=== PATIENT | male | born 1945 | race Caucasian/White ===

== ENCOUNTER 2019-05-18 11:00 | Outpatient (RCR) | payer MEDICARE, BC ==
[~2019-05-18 11:00] MED LIST: ANTIBIOTIC; ASPIR-LOW81 MG PO; CEPHALEXIN500 M1 PO; DOXYCYCLINE 10100 MG PO; FERROUS SU325 MG/TAB PO; FISH OIL500 MG PO; FOLIC ACID 40400 MCG PO; LORTAB PO; MULTIVITAMIN1 SGL PO; NO HOME MEDICATIONS; NORCO 325 MG-7.1 TAB PO; TYLENOL 500MG500 MG PO; ULTRAM 50MG TAB50 MG PO; VITAMIN C500 MG PO
== END 2019-06-02 | disposition home or self-care (01) ==
LOC: WSPT
DX: M62.89 Other specified disorders of muscle (principal); M25.561 Pain in right knee; Z96.651 Presence of right artificial knee joint

== ENCOUNTER 2019-07-26 15:17 | Inpatient (IN) | payer MEDICARE, BC ==
[~2019-07-26] VITALS: Ht 165.1 cm; Wt 75.6 kg
[2019-07-26] MEDS ORDERED: ARICEPT10 MG PO (15:27)
[2019-07-26] MEDS ORDERED: NAMENDA5 MG PO (15:28)
[2019-07-26 15:53] LABS: BASO % 0.6 % (0.0-2.0); EOS # 0.2 (0.0-0.7); EOS % 3.2 % (0-4.0); GRAN # 3.5 (1.4-6.5); GRAN % 55.4 % (42.2-75.2); HEMOGLOBIN 17.5 g/dl (13.5-18.0); LYMPH # 1.7 (1.2-3.4); MEAN CELL VOLUME 97 fl (80.0-100.0); MEAN CORPUSCULAR HEMOGLOBIN 33 pg (27.0-31.0); MEAN CORPUSCULAR HGB CONC 34 g/dl (33.0-37.0); MEAN PLATELET VOLUME 8.7 fl (7.4-10.4); MONO # 0.8 (0.1-0.6); MONO % 13.3 % (1.7-9.3); PLATELET COUNT 248 K/mm3 (130-400); RED BLOOD COUNT 5.39 M/mm3 (4.20-5.60); REDCELL DISTRIBUTION WIDTH-CV 12.3 % (11.5-14.5)
[2019-07-26 15:57] LABS: COLLECTION METHOD CLEAN CATCH
[2019-07-26 16:04] LABS: HEMATOCRIT 52.3 % (42.0-52.0)
[2019-07-26 16:17] LABS: MUCOUS Present /lpf; PH 5 (5-8); SQUAMOUS EPITHELIAL None Seen /hpf; URINE APPEARANCE Clear; URINE BACTERIA None Seen /hpf; URINE BILIRUBIN Negative (NEGATIVE); URINE BLOOD Negative (NEGATIVE); URINE COLOR Yellow; URINE GLUCOSE Negative (NEGATIVE); URINE KETONE Negative (NEGATIVE); URINE LEUKOCYTE ESTERASE Negative (NEGATIVE); URINE NITRATE Negative (NEGATIVE); URINE PROTEIN(semi-quant) Negative (NEGATIVE); URINE RBC 0-2 /hpf; URINE UROBILINOGEN Negative (NEGATIVE)
[2019-07-26 16:18] LABS: ALANINE AMINOTRANSFERASE 31 U/L (21-72); ALBUMIN 4.2 gm/dL (3.5-5.0); ALKALINE PHOSPHATASE 115 U/L (50-136); ANION GAP 11 mmol/L (7-16); AST,SGOT 61 U/L (15-37); BILIRUBIN,TOTAL 1.4 mg/dL (0.0-1.0); BLOOD UREA NITROGEN 17 mg/dL (9-20); CALCIUM 9.2 mg/dL (8.4-10.2); CARBON DIOXIDE 25 mmol/L (22-30); CHLORIDE 106 mmol/L (98-107); CREATININE, serum 0.99 (0.66-1.25); GLUCOSE 94 mg/dL (74-106); POTASSIUM 4.1 mmol/L (3.4-5.0); SODIUM 142 mmol/L (137-145); TOTAL PROTEIN 8.1 gm/dL (6.4-8.2)
[2019-07-26 16:32] LABS: TROPONIN-I < 0.012 ng/mL (0.000-0.035)
[2019-07-26 16:44] LABS: CREATINE KINASE 186 U/L (55-170)
[2019-07-26 16:47] LABS: C-REACTIVE PROTEIN < 0.5 mg/dL (0.0-0.9)
--- NOTE | 2019-07-26 18:00 | NUR ---
Pt arrives to medical unit rm 311 from ED, awake and alert, oriented to self only. Doll Wigs Hackler equal bilat and facial movements symmetrical bilat. IV to left AC without s/s of complications. Pt denies pain at this time. No difficulty with swallowing water noted. Pt's and daughter at bedside answering questions. No further needs reported. Call light in reach.
[2019-07-26] MEDS ORDERED: NAMENDA 10MG TA10 MG PO (18:01)
[2019-07-26 18:07] VITALS: BP 117/76; PULSE 55; TEMP 97.5
--- NOTE | 2019-07-26 20:12 | NUR ---
ASSSESSMENT COMPLETE. RESTING IN BED. POOR HISTORIAN. REPORTS THAT IS HIS BASELINE. DENIES PAIN/ NEEDS AT THIS TIME.
[2019-07-26 21:50] VITALS: BP 114/68; PULSE 53; TEMP 98
[2019-07-27 00:43] VITALS: BP 118/73; PULSE 56; TEMP 97.4
[2019-07-27 03:51] VITALS: BP 130/80; PULSE 56; TEMP 97.9
[2019-07-27 06:30] LABS: BASO % 0.7 % (0.0-2.0); EOS # 0.2 (0.0-0.7); EOS % 4.1 % (0-4.0); GRAN # 3.1 (1.4-6.5); GRAN % 54.7 % (42.2-75.2); HEMATOCRIT 49.6 % (42.0-52.0); HEMOGLOBIN 16.2 g/dl (13.5-18.0); LYMPH # 1.4 (1.2-3.4); MEAN CELL VOLUME 98 fl (80.0-100.0); MEAN CORPUSCULAR HEMOGLOBIN 32 pg (27.0-31.0); MEAN CORPUSCULAR HGB CONC 33 g/dl (33.0-37.0); MEAN PLATELET VOLUME 8.9 fl (7.4-10.4); MONO # 0.9 (0.1-0.6); PLATELET COUNT 237 K/mm3 (130-400); RED BLOOD COUNT 5.07 M/mm3 (4.20-5.60); REDCELL DISTRIBUTION WIDTH-CV 12.3 % (11.5-14.5)
[2019-07-27 06:47] LABS: CALCIUM 8.8 mg/dL (8.4-10.2); CREATININE, serum 0.95 (0.66-1.25)
[2019-07-27 07:16] LABS: TSH w REFLEX 1.76 uIU/mL (0.465-4.680)
--- NOTE | 2019-07-27 10:00 | NUR ---
Patient has successfully been having bowel movements, is releived to be having them since it has been so long but is apologetic for incontinence care. Was reassured that it was no problem and we were pleased he was getting relief.
[2019-07-27] MEDS ORDERED: NAMENDA 10MG TA10 MG PO (10:06)
--- NOTE | 2019-07-27 10:31 | NUR ---
Meter Reader met with patient to discuss discharge planning. Patient lives in [place] with his Breanna (ph#[phone]) and sees Dr. Castellano for primary care. Patient obtains medications from [facility] with no difficulties. Patient uses a cane and Breanna reports patient gets around the house okay. Patient does not require assistance with ADLS however receives assistance as needed from his . Breanna reports they go to a local indoor pool about three times a week for aquatic exercise. Breanna reports DPOA-HC is completed although SW did not locate copy in EMR. Patient plans to return home upon discharge. Breanna reports patient worked with home health a few years ago and is open to their services if recommended. Patient to work with PT/OT/ST. DEJA to continue to follow to ensure safe discharge.
--- NOTE | 2019-07-27 12:01 | NUR ---
Initial visit; Traffic Administrator spoke with patient's , letting her know of the availability of spiritual care at [facility].
[2019-07-27 16:07] VITALS: BP 116/77; PULSE 64; TEMP 97.3
--- NOTE | 2019-07-27 16:13 | NUR ---
Syrup Shed Supervisor collaborated with JESSENIA Hamm who advised patient would like outpatient Physical Therapy. SW met with patient and patient's Breanna who reports patient would like to continue PT at [facility] on [address]. DEJA contacted [facility] and made appointment for PT evaluation with [facility] on 08/04/2019 at 0800. DEJA provided appointment to Breanna and Audrey stevenson.
--- NOTE | 2019-07-27 18:50 | NUR ---
Patient is up in bed eating, call light nad personal items are within reach.
[2019-07-27 19:36] VITALS: BP 151/99; PULSE 99; TEMP 97.8
--- NOTE | 2019-07-27 19:38 | NUR ---
ASSESSMENT COMPLETE. MULTIPLE ATTEMPTS TO RISE UASSISSTED "TO FIND THE FRONT DOOR AND GET OUT OF HERE." REORIENTED TO ROOM. REMINDED THAT HE IS IN THE HOSPITAL. DENIES PAIN/ DISCOMFORT.
[2019-07-27 23:10] VITALS: BP 135/82; PULSE 69; TEMP 97.6
[2019-07-28 04:40] VITALS: BP 141/80; PULSE 60; TEMP 97.9
[2019-07-28 05:58] LABS: BASO # 0.1 (0.0-0.2); BASO % 0.8 % (0.0-2.0); EOS # 0.3 (0.0-0.7); EOS % 4.2 % (0-4.0); GRAN # 3.3 (1.4-6.5); GRAN % 51.3 % (42.2-75.2); HEMATOCRIT 50.4 % (42.0-52.0); HEMOGLOBIN 16.8 g/dl (13.5-18.0); LYMPH # 1.8 (1.2-3.4); LYMPH % 27.5 % (20.0-51.0); MEAN CELL VOLUME 98 fl (80.0-100.0); MEAN CORPUSCULAR HEMOGLOBIN 33 pg (27.0-31.0); MEAN CORPUSCULAR HGB CONC 33 g/dl (33.0-37.0); MONO % 15.9 % (1.7-9.3); PLATELET COUNT 234 K/mm3 (130-400); RED BLOOD COUNT 5.12 M/mm3 (4.20-5.60); REDCELL DISTRIBUTION WIDTH-CV 12.3 % (11.5-14.5)
--- NOTE | 2019-07-28 07:15 | NUR ---
Received report, patient is currently laying in bed, eyes are open, smiles at staff during report. Call light and personal items are within reach.
[2019-07-28 07:20] VITALS: BP 138/61; PULSE 67; TEMP 97.6
--- NOTE | 2019-07-28 07:25 | NUR ---
Patient resting in bed with eyes closed. Patient is easily aroused, oriented to self. Moves extremities well but needs verbal queing. Left AC INT, no redness, swelling, edema noted and Tele on. at beside and bed alarm is engaged.
[2019-07-28 07:58] LABS: CALCIUM 9.4 mg/dL (8.4-10.2); CHOLESTEROL RISK RATIO 6.5; CREATININE, serum 0.99 (0.66-1.25); POTASSIUM 4.5 mmol/L (3.4-5.0)
[2019-07-28] MEDS ORDERED: PLAVIX 75MG TAB75 MG PO (10:28)
[2019-07-28] MEDS ORDERED: LIPITOR 80MG80 MG PO (10:29)
--- NOTE | 2019-07-28 11:15 | NUR ---
Patient to discharge home today with outpatient physcial therapy. No additional needs identified at this time.
== END 2019-07-28 13:50 | disposition home or self-care (01) | DRG 66 ==
LOC: COL.ER 15:17 → MEDICAL 16:37
PROVIDERS: Emergency Medicine; Physician Assistant; ADMIT Student in an Organized Health Care Education/Training Program
DX: I63.89 Other cerebral infarction (principal); F03.90 Unspecified dementia, unspecified severity, without behavioral disturbance, psychotic disturbance, mood disturbance, and anxiety; Z96.651 Presence of right artificial knee joint; R47.81 Slurred speech; R29.810 Facial weakness; Z87.891 Personal history of nicotine dependence
CPT/HCPCS: 99223-AI; 99232-AI; 99239; J1650; J7030

== ENCOUNTER 2019-11-05 11:00 | Outpatient (RCR) | payer MEDICARE, BC ==
[~2019-11-05 11:00] MED LIST changes: +ARICEPT10 MG PO; +LIPITOR 80MG80 MG PO; +NAMENDA 10MG TA10 MG PO; +NAMENDA5 MG PO; +PLAVIX 75MG TAB75 MG PO
== END 2019-11-08 | disposition home or self-care (01) ==
LOC: WSPT
DX: I63.50 Cerebral infarction due to unspecified occlusion or stenosis of unspecified cerebral artery (principal)

== ENCOUNTER 2019-12-23 11:00 | Outpatient (RCR) | payer MEDICARE, BC | END 2020-02-07 | disposition home or self-care (01) | LOC: WSC | DX: I63.50 Cerebral infarction due to unspecified occlusion or stenosis of unspecified cerebral artery (principal) ==

== ENCOUNTER 2020-03-17 09:45 | Emergency (ER) | payer MEDICARE, BC ==
[~2020-03-17] VITALS: Ht 165.1 cm; Wt 71.4 kg
[2020-03-17 10:04] VITALS: TEMP 98.4
[2020-03-17 11:30] VITALS: BP 118/85; PULSE 64
== END 2020-03-17 12:00 | disposition home or self-care (01) ==
LOC: COL.ER 09:45
DX: S30.0XXA Contusion of lower back and pelvis, initial encounter (principal); F03.90 Unspecified dementia, unspecified severity, without behavioral disturbance, psychotic disturbance, mood disturbance, and anxiety; Z87.891 Personal history of nicotine dependence; Z96.651 Presence of right artificial knee joint; Z88.1 Allergy status to other antibiotic agents; Z79.02 Long term (current) use of antithrombotics/antiplatelets; W01.0XXA Fall on same level from slipping, tripping and stumbling without subsequent striking against object, initial encounter; Y93.01 Activity, walking, marching and hiking; Y92.009 Unspecified place in unspecified non-institutional (private) residence as the place of occurrence of the external cause

== ENCOUNTER 2020-08-27 22:36 | Emergency (ER) | payer MEDICARE, BC ==
[~2020-08-27] VITALS: Ht 165.1 cm; Wt 68.2 kg
[2020-08-27 22:48] VITALS: TEMP 97.6
[2020-08-27 23:14] LABS: BASO % 0.6 % (0.0-2.0); EOS # 0.2 (0.0-0.7); EOS % 3.8 % (0-4.0); GRAN # 3.4 (1.4-6.5); GRAN % 53.7 % (42.2-75.2); HEMATOCRIT 50.8 % (42.0-52.0); HEMOGLOBIN 16.9 g/dl (13.5-18.0); LYMPH # 1.7 (1.2-3.4); LYMPH % 26.4 % (20.0-51.0); MEAN CELL VOLUME 97 fl (80.0-100.0); MEAN CORPUSCULAR HEMOGLOBIN 32 pg (27.0-31.0); MEAN CORPUSCULAR HGB CONC 33 g/dl (33.0-37.0); MEAN PLATELET VOLUME 8.8 fl (7.4-10.4); MONO % 15.3 % (1.7-9.3); PLATELET COUNT 238 K/mm3 (130-400); RED BLOOD COUNT 5.24 M/mm3 (4.20-5.60); REDCELL DISTRIBUTION WIDTH-CV 12.9 % (11.5-14.5)
[2020-08-27 23:26] LABS: ALANINE AMINOTRANSFERASE 30 U/L (4-49); ALKALINE PHOSPHATASE 111 U/L (50-136); ANION GAP 10 mmol/L (7-16); AST,SGOT 43 U/L (15-37); BILIRUBIN,TOTAL 1.7 mg/dL (0.0-1.0); BLOOD UREA NITROGEN 14 mg/dL (9-20); CALCIUM 9.1 mg/dL (8.4-10.2); CARBON DIOXIDE 25 mmol/L (22-30); CHLORIDE 104 mmol/L (98-107); CREATININE, serum 1.05 (0.66-1.25); GLUCOSE 115 mg/dL (74-106); LIPASE 229 U/L (23-300); POTASSIUM 3.7 mmol/L (3.4-5.0); SODIUM 139 mmol/L (137-145); TOTAL PROTEIN 7.9 gm/dL (6.4-8.2)
[2020-08-27 23:28] LABS: C-REACTIVE PROTEIN < 0.5 mg/dL (0.0-0.9)
[2020-08-28 00:11] LABS: COLLECTION METHOD CLEAN CATCH
[2020-08-28 00:17] LABS: MUCOUS Present /lpf; PH 5 (5-8); SQUAMOUS EPITHELIAL 0-2 /hpf; URINE APPEARANCE Hazy; URINE BACTERIA None Seen /hpf; URINE BILIRUBIN Negative (NEGATIVE); URINE BLOOD 3+ (NEGATIVE); URINE COLOR Yellow; URINE GLUCOSE Negative (NEGATIVE); URINE KETONE Negative (NEGATIVE); URINE LEUKOCYTE ESTERASE Negative (NEGATIVE); URINE NITRATE Negative (NEGATIVE); URINE PROTEIN(semi-quant) Negative (NEGATIVE); URINE RBC >50 /hpf; URINE UROBILINOGEN Negative (NEGATIVE)
[2020-08-28 01:44] VITALS: BP 129/84; PULSE 68
== END 2020-08-28 01:45 | disposition home or self-care (01) ==
LOC: COL.ER 22:36
PROVIDERS: Nurse Practitioner Primary Care
DX: N20.1 Calculus of ureter (principal); F03.90 Unspecified dementia, unspecified severity, without behavioral disturbance, psychotic disturbance, mood disturbance, and anxiety; Z88.1 Allergy status to other antibiotic agents; Z79.02 Long term (current) use of antithrombotics/antiplatelets
CPT/HCPCS: J2405; J7030; Q9967

== ENCOUNTER 2020-09-30 08:02 | Observation (INO) | payer MEDICARE, BC ==
[~2020-09-30] VITALS: Ht 165.1 cm; Wt 68.2 kg
[2020-09-30] VITALS (8 sets, daily range): BP systolic 106–151; BP diastolic 62–84; PULSE 58–85; TEMP 97.7
[2020-09-30 08:51] LABS: BASO % 0.8 % (0.0-2.0); EOS # 0.1 (0.0-0.7); EOS % 2.8 % (0-4.0); GRAN # 3.2 (1.4-6.5); HEMATOCRIT 49.6 % (42.0-52.0); HEMOGLOBIN 16.6 g/dl (13.5-18.0); LYMPH % 20.3 % (20.0-51.0); MEAN CELL VOLUME 96 fl (80.0-100.0); MEAN CORPUSCULAR HEMOGLOBIN 32 pg (27.0-31.0); MEAN CORPUSCULAR HGB CONC 34 g/dl (33.0-37.0); MEAN PLATELET VOLUME 8.8 fl (7.4-10.4); MONO # 0.6 (0.1-0.6); MONO % 12.1 % (1.7-9.3); PLATELET COUNT 239 K/mm3 (130-400); RED BLOOD COUNT 5.16 M/mm3 (4.20-5.60); REDCELL DISTRIBUTION WIDTH-CV 12.8 % (11.5-14.5)
[2020-09-30 09:04] LABS: ALANINE AMINOTRANSFERASE 34 U/L (4-49); ALBUMIN 3.9 gm/dL (3.5-5.0); ALKALINE PHOSPHATASE 102 U/L (50-136); ANION GAP 8 mmol/L (7-16); AST,SGOT 37 U/L (15-37); BILIRUBIN,TOTAL 1.9 mg/dL (0.0-1.0); BLOOD UREA NITROGEN 15 mg/dL (9-20); CALCIUM 9.2 mg/dL (8.4-10.2); CARBON DIOXIDE 27 mmol/L (22-30); CHLORIDE 107 mmol/L (98-107); GLUCOSE 128 mg/dL (74-106); POTASSIUM 3.8 mmol/L (3.4-5.0); SODIUM 143 mmol/L (137-145); TOTAL PROTEIN 7.5 gm/dL (6.4-8.2)
[2020-09-30 09:06] LABS: C-REACTIVE PROTEIN < 0.5 mg/dL (0.0-0.9)
[2020-09-30] MEDS ORDERED: PYRIDIUM 100MG100 MG PO (11:16)
[2020-09-30] MEDS ORDERED: NORCO 325 MG-51 TAB PO (11:16)
--- NOTE | 2020-09-30 17:00 | NUR ---
Patient received post op from Ruth. He was very irritated. Up to the bathroom, he voided & was incontinent. His supportive at bedside. Assisting with cares. Patient has base line dementia, worse post anesthesia. Cardiology rounded & okayed for patient to discharge home. Patient then was able to nap. Patient vitals have been stable, no issuse reported with tele. made aware & patient wanting to take him home due to his baseline dementia-she has concerns of his "sundowning". Patient has been walked in the halls with walker & gaitbelt. helping to direct patient. Patient wheeled out with all belongings. ready to get home & verbalized all discharge teaching.
== END 2020-09-30 17:00 | disposition home health service (06) ==
LOC: COL.ER 08:02 → SDCO 08:48 → COL.ER 08:49 → SDCO 08:49 → SURG 08:49 → SDCO 13:59 → SURG 14:00
PROVIDERS: Family Medicine; ADMIT Urology
DX: N13.2 Hydronephrosis with renal and ureteral calculous obstruction (principal); G30.9 Alzheimer's disease, unspecified; F02.80 Dementia in other diseases classified elsewhere, unspecified severity, without behavioral disturbance, psychotic disturbance, mood disturbance, and anxiety; I97.191 Other postprocedural cardiac functional disturbances following other surgery; I49.3 Ventricular premature depolarization; I34.0 Nonrheumatic mitral (valve) insufficiency; I49.8 Other specified cardiac arrhythmias; E78.5 Hyperlipidemia, unspecified; R00.8 Other abnormalities of heart beat; Z87.891 Personal history of nicotine dependence; Z79.02 Long term (current) use of antithrombotics/antiplatelets; Z79.899 Other long term (current) drug therapy; Z88.1 Allergy status to other antibiotic agents
CPT/HCPCS: C1769; C2617; G0378; J0690; J1100; J1170; J2270; J2405; J2704; J3010; J7120; Q9967

== ENCOUNTER → 2021-11-09 | Outpatient (CLI) | payer MEDICARE, BC ==
[~2021-11-09] MED LIST changes: +NORCO 325 MG-51 TAB PO; +PYRIDIUM 100MG100 MG PO
== END ==
LOC: COL.RAD 15:14
DX: M79.604 Pain in right leg (principal); Z96.651 Presence of right artificial knee joint

== ENCOUNTER → 2024-04-26 | Outpatient (CLI) | payer MEDICARE, BC ==
[2024-04-26 15:16] LABS: BASO # 0.1 K/mm3 (0.0-0.2); EOS # 0.2 K/mm3 (0.0-0.7); EOS % 3.7 % (0.0-4.0); GRAN # 2.9 K/mm3 (1.4-6.5); GRAN % 60.4 % (42.2-75.2); HEMATOCRIT 54.1 % (42.0-52.0); HEMOGLOBIN 17.6 g/dl (13.5-18.0); LYMPH # 1.2 K/mm3 (1.2-3.4); LYMPH % 24.4 % (20.0-51.0); MEAN CELL VOLUME 99 fl (80.0-100.0); MEAN CORPUSCULAR HEMOGLOBIN 32 pg (27-31); MEAN CORPUSCULAR HGB CONC 33 g/dl (33.0-37.0); MEAN PLATELET VOLUME 9.2 fl (7.4-10.4); MONO # 0.5 K/mm3 (0.1-0.6); MONO % 10.3 % (1.7-9.3); PLATELET COUNT 259 K/mm3 (130-400); RED BLOOD COUNT 5.45 M/mm3 (4.20-5.60); REDCELL DISTRIBUTION WIDTH-CV 13.2 % (11.5-14.5)
[2024-04-26 15:21] LABS: ALBUMIN 3.7 g/dL (3.4-4.8); BILIRUBIN,TOTAL 1.1 mg/dL (0.2-1.2); CALCIUM 9.1 mg/dL (8.4-10.2); CREATININE, serum 1.01 mg/dL (0.72-1.25); POTASSIUM 4.5 mEq/L (3.5-4.5); THYROID STIMULATING HORMONE 1.284 uIU/mL (0.350-4.940); TOTAL PROTEIN 7.3 g/dl (6.2-8.1)
== END ==
LOC: COL.LAB 12:01
PROVIDERS: Internal Medicine
DX: I61.0 Nontraumatic intracerebral hemorrhage in hemisphere, subcortical (principal); E78.5 Hyperlipidemia, unspecified